=== PATIENT | female | born 1955 | race Caucasian/White ===

== ENCOUNTER → 2016-12-07 | Outpatient (CLI) | payer MEDICARE ==
[2016-12-04 08:49] LABS: PARTIAL THROMBOPLASTIN TIME 39.5 SEC (24.67-30.72)
[2016-12-04 09:12] LABS: PROTHROMBIN PROTIME 56.4 SEC (9.8-11.9)
[2016-12-04 09:14] LABS: INR 5.3
[2016-12-07 12:38] LABS: INR 3.1; PARTIAL THROMBOPLASTIN TIME 40.8 SEC (24.67-30.72); PROTHROMBIN PROTIME 33.5 SEC (9.8-11.9)
== END | disposition home or self-care (01) ==
LOC: LAB 11:41
PROVIDERS: ATTEND Otolaryngology
DX: I82.409 Acute embolism and thrombosis of unspecified deep veins of unspecified lower extremity (principal)
CPT/HCPCS: 36415; 85610; 85730

== ENCOUNTER 2017-02-11 22:20 | Inpatient (IN) | payer MEDICARE ==
[~2017-02-11] VITALS: Ht 154.9 cm; Wt 83.2 kg
[2017-02-11] MEDS ORDERED: NS IV STA (23:24)
[2017-02-11] MEDS ORDERED: MAXIPIME 1 GM in NS 100ML 100 ML IV STA (23:24)
[2017-02-11] MEDS ORDERED: TYLENOL PO STA (23:27)
[2017-02-11] MEDS ORDERED: MAXIPIME 2 GM in NS 100ML 100 ML IV STA (23:27)
--- NOTE | 2017-02-11 23:30 | ER.PDOC ---
General Chief Complaint: General Complaint Stated Complaint: WEAKNESS TRAVEL OUT OF US: No Time seen by MD: 23:29 Source: patient Exam Limitations: no limitations History of Present Illness Initial Comments Fever and weakness today. Taking chemo for Uterine Cancer. Severity: moderate Associated Symptoms: weakness Allergies: Coded Allergies: codeine (Verified Allergy, Unknown, Nausea, 02/11/17) Past Medical History Medical History: cancer Surgical History: hysterectomy LMP (females 10-50): hysterectomy Social History Smoking: cigarettes Alcohol Use: none Drug Use: none Review of Systems Constitutional: fever, weakness Respiratory: no symptoms reported Cardiovascular: no symptoms reported Gastrointestinal: no symptoms reported Musculoskeletal: no symptoms reported All Other Systems: Reviewed and Negative Physical Exam General Appearance: No Apparent Distress, WD/WN Neck: Non-Tender, Full Range of Motion, Supple, Normal Inspection Respiratory: chest non-tender, lungs clear, normal breath sounds, no respiratory distress CVS: reg rate & rhythm, no murmur, no gallop, pulses nml, nml capillary refill Gastrointestinal: Normal Bowel Sounds, No Organomegaly, No Pulsatile Mass, Non Tender Back: Normal Inspection, No CVA Tenderness Extremities: Normal Range of Motion, Non-Tender Neurologic/Psychiatric: international account representative II-XII NML as Tested Results/Orders Results/Orders Laboratory Tests Test 02/11/17 23:24 02/11/17 23:33 Blood Gas Sample Site Vbg Blood Gas pH 7.452 (7.350-7.450) Blood Gas PCO2 28.7 mmHg (35.0-45.0) Blood Gas PO2 40.7 mmHg (75.0-100.0) Blood Gas HCO3 19.6 mmol/L (22.0-26.0) Blood Gas Base Excess -3.8 mmol/L (-2.0-2.0) Sandro Test N/a Arterial Blood Oxygen Saturation 74.4 % (95-) Deoxyhemoglobin 24.7 % (0.2-0.6) Carboxyhemoglobin 2.8 % (0.5-1.5) Methemoglobin 0.8 % (0.2-0.6) Total Hemoglobin 7.9 % (13.5-17.5) Total Oxygen Concentration 8.0 % (13.5-17.5) Lactic Acid (Blood Gas) 1.0 MMOL/L (0.5-1.0) Blood Gas Temperature 37.0 FiO2 21 % (20-101) Bicarbonate 20.5 mmol/L (23-27) White Blood Count 4.8 10^3/uL (4.5-11.0) Red Blood Count 2.55 10^6/uL (4.00-5.20) Hemoglobin 6.9 g/dL (12.0-15.0) Hematocrit 22.5 % (36.0-46.0) Mean Corpuscular Volume 88.2 fL (78-100) Mean Corpuscular Hemoglobin 27.1 pg (26-34) Mean Corpuscular Hemoglobin Concent 30.7 g/dL (33-37) Red Cell Distribution Width 21.3 % (11.5-14.5) Platelet Count 336 10^3/uL (150-400) Mean Platelet Volume 9.0 fL (7.8-11.0) Neutrophils (%) (Auto) 61.3 % (41.0-85.0) Lymphocytes (%) (Auto) 26.4 % (24.0-44.0) Monocytes (%) (Auto) 11.5 % (5.0-12.0) Neutrophils # (Auto) 2.9 10^3/uL (1.8-7.7) Lymphocytes # (Auto) 1.3 10^3/uL (1.0-4.8) Monocytes # (Auto) 0.6 10^3/uL (0.3-0.8) Absolute Immature Granulocyte (auto 0 10^3 u/L (0-2) Eosinophils % 0.6 % (0.0-5.0) Basophils % 0.2 % (0.0-0.2) Basophils # 0.0 10^3/uL (0.0-0.1) Eosinophil Count 0.0 10^3/uL (0.0-0.2) Prothrombin Time 10.3 SEC (9.8-11.9) Prothromb Time International Ratio 1.0 Activated Partial Thromboplast Time 29.9 SEC (24.67-30.72) Sodium Level 140 mmol/L (132-145) Potassium Level 4.9 mmol/L (3.6-5.2) Chloride Level 106.0 mmol/L (96-109) Carbon Dioxide Level 21.8 mmol/L (20.0-32) Anion Gap 17.1 Blood Urea Nitrogen 44 mg/dL (7-18) Creatinine 1.97 mg/dL (0.59-1.40) Estimated GFR () 31.3 BUN/Creatinine Ratio 22.0 Glucose Level 106 mg/dL (70-110) Calculated Osmolality 300.7 Calcium Level 8.4 mg/dL (8.4-10.5) Total Bilirubin 0.4 mg/dL (0.2-1.0) Aspartate Amino Transf (AST/SGOT) 23 U/L (0-35) Alanine Aminotransferase (ALT/SGPT) 17 U/L (12-78) Alkaline Phosphatase 109 U/L (50-136) Total Protein 6.7 g/dL (6.4-8.2) Albumin 2.5 g/dL (3.4-5.0) Globulin 4.2 Percent Immature Gran (Cell Imm) 0.00 % (0.00-0.50) Progress Progress Spoke to Dr. Calles who said patient can be admitted here. EKG/XRAY/CT/US XRAY: chest (Nothing acute) Departure Time of Disposition: 00:40 Disposition: 09 ADMITTED INPATIENT Impression: Primary Impression: Anemia Qualified Codes: D64.9 - Anemia, unspecified Additional Impressions: Fever of unknown origin (FUO) Uterine cancer Condition: Stable Referrals: MISAEL PETE MD (PCP) PRIMARY CARE PROVIDER Comments Admitted to Dr. Hayden PENN,SHYAM Gil MD Feb 11, 2017 23:30
[2017-02-11 23:39] LABS: BASOPHIL % 0.2 % (0.0-0.2); EOSINOPHIL % 0.6 % (0.0-5.0); HEMATOCRIT 22.5 % (36.0-46.0); LYMPHOCYTES # 1.3 10^3/uL (1.0-4.8); LYMPHOCYTES % 26.4 % (24.0-44.0); MEAN CELL HGB 27.1 pg (26-34); MEAN CELL HGB CONCENTRATION 30.7 g/dL (33-37); MEAN CORP VOLUME 88.2 fL (78-100); MONOCYTES # 0.6 10^3/uL (0.3-0.8); MONOCYTES % 11.5 % (5.0-12.0); NEUTROPHIL # 2.9 10^3/uL (1.8-7.7); NEUTROPHILS % 61.3 % (41.0-85.0); RED CELL DISTRIBUTION WIDTH 21.3 % (11.5-14.5); WHITE BLOOD CELL 4.8 10^3/uL (4.5-11.0)
[2017-02-11 23:42] LABS: HEMOGLOBIN 6.9 g/dL (12.0-15.0)
[2017-02-11 23:42] LABS: ABG PCO2 28.7 mmHg (35.0-45.0); ABG PH 7.452 (7.350-7.450); BE(B) -3.8 mmol/L (-2.0-2.0); HCO3act 19.6 mmol/L (22.0-26.0); pO2 40.7 mmHg (75.0-100.0)
[2017-02-12] VITALS (9 sets, daily range): BP systolic 129–185; BP diastolic 60–86
[2017-02-12 00:06] LABS: CALCIUM 8.4 mg/dL (8.4-10.5); CARBON DIOXIDE 21.8 mmol/L (20.0-32)
--- NOTE | 2017-02-12 00:14 | DIREP ---
PROCEDURE:CHEST 1 VIEW COMPARISON:[facility], CT, CT ABD/PELVIS W/WO, 11/09/2016, 09:10 AM. INDICATIONS:Fever FINDINGS: LUNGS/PLEURA:No significant pulmonary parenchymal abnormalities. No effusions. VASCULATURE:Normal. Unremarkable pulmonary vasculature. CARDIAC:Normal. No cardiac silhouette abnormality or cardiomegaly. MEDIASTINUM:Normal. No visible mass or adenopathy. BONES:Degenerative changes of the thoracic spine and shoulders. OTHER:Right subclavian Port-A-Cath. CONCLUSION:No acute cardiopulmonary abnormalities. Dictated by: Norm Estrada M.D. on 02/12/2017 at 00:13 AM
--- NOTE | 2017-02-12 00:16 | NUR ---
DR MONA THAO MBA SPEAKING WITH DR DUNN
--- NOTE | 2017-02-12 00:25 | NUR ---
DR JACOBO THAO MBA SPEAKING WITH DR CENTENO , PATIENT TO BE ADMITTED TO MED SURG
[2017-02-12] MEDS ORDERED: MAXIPIME 1 GM in NS 100ML 100 ML IV STA (00:43)
--- NOTE | 2017-02-12 00:43 | PRM.ACF1 ---
Date and Time Date and Time Time: 00:42 Admission Criteria Forms ANEMIA Clinical Indications for Inpatient Care (Place 'X' for any and all applicable criteria) Ongoing inpatient care may be needed for anemia with 1 or more of the following (1)(2)(3)(4)(18)(37): []I. Severe signs or symptoms unresponsive to transfusion or volume replacement , including ANY ONE of the following: []a) Heart failure []b) Chest pain []c) Myocardial ischemia []d) Exertional dyspnea []e) Syncope []f) Acute peripheral ischemia (eg, pulseless, cool, mottled, or cyanotic extremity) [x]g) Other severe signs or symptoms []II. Cognitive impairment []III. Active hemorrhage []IV.Active hemolysis with rapidly progressive anemia []V. Hemodynamic instability Extended stay beyond goal length of stay for the primary condition may be needed until ALL of the following are present (1)(2)(3)(4): []a) Hemodynamic stability []b) Any active blood loss controlled []c) Severe signs or symptoms resolved []d) Mental status normal or at baseline []e) Stable hemoglobin after transfusion []f) Any underlying disorder or complications of treatment controlled The original [employer] content created by [employer] has been revised. The portions of the content which have been revised are identified through the use of italic text or in bold, and [email or web address] has neither reviewed nor approved the modified material. All other unmodified content is copyright [employer]. Please see references footnoted in the original [employer] edition 2016 SHYAM PENN MD Feb 12, 2017 00:43
[2017-02-12] MEDS ORDERED: LASIX IV STA (00:48)
[2017-02-12] MEDS ORDERED: NS 1000ML 1,000 ML ONE (00:58)
[2017-02-12] MEDS ORDERED: TYLENOL PO ONE (00:58)
[2017-02-12] MEDS ORDERED: NS IV SCH (01:00)
[2017-02-12] MEDS ORDERED: RANI150C PO (01:32)
[2017-02-12] MEDS ORDERED: OXYC5TAB PO (01:32)
[2017-02-12] MEDS ORDERED: IBUP400T PO (01:32)
[2017-02-12] MEDS ORDERED: PROC10TA PO ×2 (01:32)
[2017-02-12] MEDS ORDERED: [UNRECOGNIZED DRUG - CODE] PO (01:32)
[2017-02-12] MEDS ORDERED: GABA300C10 PO (01:32)
[2017-02-12] MEDS ORDERED: POTA20TA14 PO (01:32)
[2017-02-12] MEDS ORDERED: LUBI24CA5 PO (01:32)
[2017-02-12] MEDS ORDERED: MAGN400T27 PO (01:32)
[2017-02-12] MEDS ORDERED: ENOX40DI SQ (01:33)
[2017-02-12 02:08] LABS: BILIRUBIN,URINE NEGATIVE (NEGATIVE); UROBILINOGEN,URINE NORMAL (NEGATIVE)
[2017-02-12 02:09] LABS: APPEARANCE,URINE CLOUDY (CLEAR); UA COLOR RED (YELLOW); WBC,URINE TNTC WBC/HPF (0-2)
[2017-02-12] MEDS ORDERED: NS 500ML 500 ML IV ONE (03:05)
[2017-02-12] MEDS ORDERED: LASIX ONE (03:07)
[2017-02-12] MEDS ORDERED: TYLENOL ONE ×3 (06:18→16:03)
[2017-02-12] MEDS ORDERED: TYLENOL PO PRN (06:30)
--- NOTE | 2017-02-12 07:30 | NUR ---
ASSESSMENT COMPLETED. PATIENT AWAKE AND ALERT. FIRST BLOOD TRANSFUSION JUST COMPLETING. LINE BEING FLUSHED WITH NS. PATIENT WITH ACCESSED PORT TO RIGHT CHEST. PATIENT UP WITH STANDBY ASSIST TO BATHROOM. VOIDED WITHOUT PROBLEMS. DENIES PAIN OR DISCOMFORT AT PRESENT. RESPIRATIONS UNLABORED. EDEMA NOTED TO LOWER EXTREMITIES WITH MORE EDEMA IN RIGHT LOWER LEG. PATIENT REPORTS LEG IS PAINFUL AT TIMES. SR UP X2. CALL LIGHT WITHIN REACH.
[2017-02-12] MEDS ORDERED: MAXIPIME 1 GM in NS 100ML 100 ML IV SCH (09:00)
--- NOTE | 2017-02-12 09:52 | NUR ---
SECOND UNIT OF BLOOD BEGAN. PATIENT RESTING IN BED WITH HOB UP 90 DEGREES. EYES CLOSED. RESPIRATIONS EASY AND UNLABORED. PATIENT EASILY AWAKENS TO VERBAL STIMULI. DENIES PAIN OR DISCOMFORT. VITAL SIGNS OBTAINED PRIOR TO STARTING UNIT OF BLOOD. NURSE AT BEDSIDE. SR UP X2.
--- NOTE | 2017-02-12 11:12 | NUR ---
PATIENT CONTINUES TO RECEIVE BLOOD TRANSFUSION. DENIES S/S ADVERSE REACTION. PATIENT CONTINUES TO REST WITH EYES CLOSED. NO DISTRESS NOTED. SR UP X2. CALL LIGHT WITHIN REACH.
--- NOTE | 2017-02-12 12:13 | NUR ---
PATIENT C/O PAIN IN RIGHT HIP AND LEG. BLOOD CONTINUING TO INFUSE. NEAR COMPLETION. PRN PAIN MED IS TYLENOL. PATIENT STATES SHE TAKES OXYCODONE AND GABAPENTIN FOR PAIN AT HOME. STATES "TYLENOL IS NOT KICKING IT."
[2017-02-12] MEDS ORDERED: OXYCODONE HCL ONE (12:42)
[2017-02-12] MEDS ORDERED: OXYCODONE HCL PO ONE ×2 (12:45→12:49)
--- NOTE | 2017-02-12 13:00 | NUR ---
DISCHARGE PLAN CM VISITED WITH PATIENT CONCERNING HER DISCHARGE PLAN AND NEED. PATIENT STATED SHE LIVES @ HOME WITH HER AND SHE IS HOWE INDEPENDENT ON ADLS. SHE STATED SHE HAS ALL DME IN PLACE INCLUDING, A WALKER, CANE AND SHOWER CHAIR. PATIENT DENIES FURTHER DME NEEDS @ THIS TIME. PATIENT IS CURRENTLY UNDERGOING CHEMO TREATMENTS FOR HER UTERINE CA DIAGNOSIS THROUGH [facility] IN [place], [place] AND STATED SHE IS GOING TO BE STARTING RADIATION TREATMENTS SOON. PATIENT DENIES FURTHER NEEDS @ THIS TIME. CONTACT INFORMATION PROVIDED. CURRENT GOAL FOR PATIENT IS TO RETURN BACK HOME WITH TO ROUTINE CARE UPON DISCHARGE. CM AND NURSING TO CONTINUE TO FOLLOW PATIENTS PLAN OF CARE AND FOR FURTHER DISCHARGE NEEDS.
--- NOTE | 2017-02-12 13:06 | NUR ---
BLOOD TRANSFUSION COMPLETED. PATIENT C/O FEELING COLD. COVERED WITH MULTIPLE BLANKETS. VS STABLE. ADMINISTERED OXYCODONE 5MG IR PO FOR PAIN. UP TO BATHROOM. URINE CLOUDY AND REDDISH BROWN. SR UP X2. CALL LIGHT WITHIN REACH.
[2017-02-12] MEDS: MAXIPIME 1 GM in NS 100ML 100 ML IV SCH (14:00)
--- NOTE | 2017-02-12 14:08 | PCM.HP ---
History of Present Illness Reason for Visit: WEAKNESS AND FEVER History of Present Illness 61-YEAR-OLD LADY, CURRENTLY ON CHEMOTHERAPY FOR UTERINE CANCER THAT IS METASTATIC REQUIRING HIP SURGERY SHE IS CURRENTLY UNDER CARE OF DR. DUNN IN [place] FOR MANAGEMENT. 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 NO COUGH, FEVER CONTROLLED. RECEIVING IV FLUIDS FOR MANAGEMENT. SHE IS ON NEUTROPENIC PRECAUTIONS Past Medical History Cardiac: HTN Renal/: Other ( UTERINNE CANCER METASTATIC) Past Surgical History: Other (RECENT HIP SURGERY) Past Social History Smoke: No Alcohol: none Lives: with Family Travel Hx EBOLA RISK:Travel to/contact w: No Is pt experiencing any Ebola s: No Review of Systems Constitutional: Chills, Weakness, Malaise, Other ( FEVER) Eyes: No: Pain, Vision change, Conjunctivae inflammation, Eyelid inflammation, Other, Redness ENT: No: Ear pain, Ear discharge, Nose pain, Nose discharge, Nose congestion, Mouth pain, Mouth swelling, Throat pain, Throat swelling, Other Respiratory: No: Cough, Dry, Shortness of breath, SOB with excertion, Wheezing , Hemoptysis, Pleuritic Pain, Sputum, Wheezing, Other Cardiovascular: No: Chest Pain, Palpitations, Orthopnea, Paroxysmal Noc. Dyspnea, Edema, Lt Headedness, Other Gastrointestinal: No: Nausea, Vomiting, Abdominal Pain, Diarrhea, Constipation , Melena, Hematochezia, Other Musculoskeletal: back pain, leg pain ( HIP PAIN MAINLY ON THE RIGHT SIDE) Skin: No: Rash, Lesions, Jaundice, Bruising, Other Allergies: Coded Allergies: codeine (Verified Allergy, Unknown, Nausea, 02/11/17) Scheduled Enoxaparin Sodium (Lovenox), 120 MG SQ DAILY, (Reported) Gabapentin (Gabapentin), 1 CAP PO TID, (Reported) Magnesium Oxide (Mag-Oxide), 1 TAB PO BID, (Reported) Potassium Chloride (Potassium Chloride), 1 TAB PO DAILY, (Reported) Scheduled PRN Docusate Sodium (Docusate Sodium), 1 CAP PO DAILY PRN for CONSTIPATION, ( Reported) Ibuprofen (Ibuprofen), 1 TAB PO Q4 PRN for FEVER, (Reported) Lubiprostone (Amitiza), 1 CAP PO BID PRN for CONSTIPATION, (Reported) Oxycodone Hcl (Oxycodone Hcl), 1 TAB PO Q4 PRN for PAIN, (Reported) Prochlorperazine Maleate (Prochlorperazine Maleate), 1 TAB PO Q6 PRN for nervousness, (Reported) Prochlorperazine Maleate (Compazine), 10 MG PO TID PRN for nausea , (Reported) Ranitidine Hcl (Ranitidine Hcl), 1 CAP PO BID PRN for INDIGESTION, (Reported) VTE VTE Risk Total Score: >5 VTE Risk Score VTE Risk: Score 0-1 = Low Risk (Aggressive mobilization; early ambulation; no VTE prophylaxis required) Score 2: Moderate Risk (Intermittent/Pneumatic Compression Device OR Lovenox/Heparin/Coumadin) Score 3-4: High Risk (Intermittent/Pneumatic Compression Device AND Lovenox/Heparin/Coumadin) Score > or =5: Highest Risk (Intermittent/Pneumatic Compression Device AND Lovenox/Heparin/Coumadin) Mechanical device ordered: Yes VTE VTE Present on Admission: Yes Currently receiving anticoagul: Yes VTE Risk Total Score: >5 Exam Vital Signs Vital Signs Date Time Temp Pulse Resp B/P (MAP) Pulse Ox O2 Delivery O2 Flow Rate FiO2 02/12/17 12:50 97.7 86 16 185/77 02/12/17 10:02 Nasal Cannula 2.00 02/12/17 07:30 100 General Appearance: Alert, Oriented X3, Cooperative HEENT: Atraumatic, PERRLA, EOMI Respiratory: Clear to auscultation, Normal air movement Cardiovascular: Regular rate, Normal S1 Abdominal: Normal bowel sounds Extremities: No clubbing Skin: No breakdown Neuro: Normal speech Assessment/Plan Assessment/Plan Assessment/Plan - ACUTE ANEMIA LIKELY SECONDARY TO CHEMOTHERAPY - NEUTROPENIA SECONDARY TO CHEMOTHERAPY - ACUTE RENAL FAILURE, LIKELY PRERENAL REQUIRING IV FLUID - METASTATIC UTERINE CANCER CARCINOMA ONCHEMOTHERAPY PLAN OF CARE WILL FOLLOW INSTRUCTIONS OF HER TREATING ONCOLOGY 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 NEUTROPENIC PRECAUTIONS. IV FLUIDS, BLOOD TRANSFUSION. PAIN CONTROL Problems: Patient History: Cerebrovascular disorder 33 FATHER Congestive heart failure 33 FATHER Diabetes mellitus 33 FATHER MONICA CENTENO MD Feb 12, 2017 14:08
[2017-02-12] MEDS ORDERED: AMBIEN PO PRN (14:30)
[2017-02-12] MEDS ORDERED: MORPHINE SULFATE IV PRN (14:30)
--- NOTE | 2017-02-12 15:50 | PRM.ACF1 ---
Admission Criteria Forms ANEMIA, IRON DEFICIENCY OR UNSPECIFIED Clinical Indications for Inpatient Care (Place 'X' for any and all applicable criteria): Admission is indicated for ANY ONE of the following(1)(2)(3)(4)(5)(6)(7): [X] I. Inpatient admission required rather than observation care (Also use Anemia, Iron Deficiency or Unspecified: Observation Care guideline as appropriate) because of ANY ONE of the following: [] a) Hemodynamic instability that is severe or persistent [] b) Active bleeding that cannot be rapidly controlled [] c) CVS symptoms (i.e., dyspnea, chest pain, heart failure) that are severe or persistent [] d) Neurologic symptoms (i.e., cognitive impairment, recurrent syncope or near syncope) that are severe or persistent [] e) Cardiac arrhythmias of immediate concern [] f) Acute peripheral ischemia (e.g., pulseless, cool, mottled, or cyanotic extremity) [] g) High-risk low platelet count [X] h) Acute renal failure [] i) Ongoing transfusion for blood loss (greater than 2 units) [] j) IV fluid to replace significant ongoing (eg, >24 hours) losses (> 3 L/m2 per day) [] k) Pulmonary artery catheter monitoring [] l) Supplemental oxygen or respiratory treatments for over 24 hours that are performable only in acute inpatient setting [] m) Immediate inpatient surgery [] n) Other condition, treatment or monitoring requiring inpatient admission [] II Active massive hemorrhage [] III. Active hemolysis with rapidly progressive anemia [A](6) Extended stay beyond goal length of stay may be needed for (17)(18) []a) Diagnosed cause of anemia requiring longer hospitalization (eg, active GI bleeding, immune hemolysis requiring electrophoresis, complications of malignancy requiring acute care []b) Continued emergent anemia indicators (23) []c) Transfusion reactions []d) Associated leukopenia or thrombocytopenia needing inpatient care []e) Active comorbidities (eg, renal failure, heart failure) The original [facility] content created by [facility] has been revised. The portions of the content which have been revised are identified through the use of italic text or in bold. [facility] has neither reviewed nor approved the modified material. All other unmodified content is copyright [facility]. Please see references footnoted in the original [facility] edition 2016 Is [facility] added/comple: YES RUTH CARRION Feb 12, 2017 15:50
[2017-02-12] MEDS ORDERED: PEPCID PO PRN (16:00)
[2017-02-12] MEDS ORDERED: COLACE PO PRN (16:00)
[2017-02-12] MEDS ORDERED: AMITIZA PO PRN (16:00)
[2017-02-12] MEDS ORDERED: COMPAZINE PO PRN ×2 (16:00)
[2017-02-12] MEDS ORDERED: MOTRIN ONE ×2 (16:10→20:22)
[2017-02-12] MEDS: NS 1000ML 1,000 ML IV SCH ×2 (16:10→22:44)
[2017-02-12] MEDS ORDERED: MOTRIN PO ONE (16:12)
[2017-02-12] MEDS: MOTRIN PO PRN ×2 (16:14→20:29)
--- NOTE | 2017-02-12 16:15 | NUR ---
PATIENT REPORTS FEELING LIKE SHE HAS FEVER. TEMPERATURE TAKEN AND PATIENT WITH 102.2. MEDICATED WITH IBUPROFEN 400MG PO. BLANKETS REMOVED AND HEAT TURNED DOWN. PATIENT C/O "JUST FEELING NOT GREAT". AT BEDSIDE.
[2017-02-12] MEDS ORDERED: LOVENOX SQ ONE (16:21)
[2017-02-12] MEDS ORDERED: KLOR-CON 10 PO ONE (16:22)
[2017-02-12] MEDS ORDERED: NEURONTIN ONE ×2 (16:22→16:23)
[2017-02-12] MEDS: NEURONTIN PO SCH ×2 (16:25→20:27)
[2017-02-12] MEDS: KLOR-CON 10 PO SCH (16:25)
--- NOTE | 2017-02-12 17:30 | NUR ---
TEMP RETAKEN. REMAINS ELEVATED AT 102.4. PATIENT ATTEMPTING TO EAT SUPPER. STATES "NOTHING SOUNDS GOOD." PATIENT LYING IN BED WITH JUST SHEET IN PLACE. CALL LIGHT WITHIN REACH. AT BEDSIDE.
--- NOTE | 2017-02-12 18:29 | NUR ---
URINE SPECIMEN OBTAINED.
--- NOTE | 2017-02-12 19:25 | NUR ---
REPORT GIVEN TO DANUTA WATERS.
[2017-02-12 20:27] LABS: BILIRUBIN,URINE NEGATIVE (NEGATIVE); UROBILINOGEN,URINE NORMAL (NEGATIVE)
[2017-02-12] MEDS: MAG-OX PO SCH (20:27)
[2017-02-12] MEDS: PEPCID PO SCH (20:27)
[2017-02-12] MEDS: OXY-IR PO PRN (20:28)
--- NOTE | 2017-02-12 20:28 | NUR ---
oxycodone 5mg po given for pain
--- NOTE | 2017-02-12 20:39 | NUR ---
motrin 400mg p given for temp
[2017-02-12 20:53] LABS: APPEARANCE,URINE SLIGHTLY HAZY (CLEAR); UA COLOR YELLOW (YELLOW)
[2017-02-12 21:06] LABS: YEAST,URINE FEW
[2017-02-13] VITALS: BP 154/86
[2017-02-13] MEDS: MAXIPIME 1 GM in NS 100ML 100 ML IV SCH (01:11)
[2017-02-13] MEDS: OXY-IR PO PRN ×2 (03:50→11:44)
[2017-02-13 04:00] VITALS: BP 173/67
[2017-02-13 06:00] LABS: BASOPHIL % 0.2 % (0.0-0.2); EOSINOPHIL # 0.1 10^3/uL (0.0-0.2); EOSINOPHIL % 2.3 % (0.0-5.0); HEMATOCRIT 28.4 % (36.0-46.0); HEMOGLOBIN 8.9 g/dL (12.0-15.0); LYMPHOCYTES % 17.9 % (24.0-44.0); MEAN CELL HGB 27.6 pg (26-34); MEAN CELL HGB CONCENTRATION 31.3 g/dL (33-37); MEAN CORP VOLUME 87.9 fL (78-100); MEAN PLATELET VOLUME 9.1 fL (7.8-11.0); MONOCYTES # 0.5 10^3/uL (0.3-0.8); NEUTROPHIL # 3.7 10^3/uL (1.8-7.7); NEUTROPHILS % 69.4 % (41.0-85.0); RED CELL DISTRIBUTION WIDTH 19.6 % (11.5-14.5); WHITE BLOOD CELL 5.3 10^3/uL (4.5-11.0)
[2017-02-13] MEDS ORDERED: LOVENOX SQ SCH (09:00)
[2017-02-13] MEDS: PEPCID PO SCH (09:13)
[2017-02-13] MEDS: KLOR-CON 10 PO SCH (09:14)
[2017-02-13] MEDS: NEURONTIN PO SCH (09:14)
[2017-02-13] MEDS: MAG-OX PO SCH (09:14)
[2017-02-13 09:27] VITALS: BP 178/85
[2017-02-13] MEDS ORDERED: NS 250ML 250 ML IV ONE (09:53)
[2017-02-13 10:02] VITALS: BP 172/87
[2017-02-13 10:23] VITALS: BP 174/86
--- NOTE | 2017-02-13 10:25 | NUR ---
1 UNIT BLOOD HAS BEEN STARTED NO REACTIONS NOTED AT THIS TIME.
[2017-02-13] MEDS: NS 1000ML 1,000 ML IV SCH (10:30)
[2017-02-13] MEDS ORDERED: CEPH-350 PO (11:20)
--- NOTE | 2017-02-13 11:35 | PRM.DC ---
Discharge Summary Date of Arrival on Unit: Feb 12, 2017 Reason for Visit: WEAKNESS AND FEVER Additional Comments 61 yo lady with metastatic uterine cancer, receiving therapy with chemo, presented to ED with weakness and fever, Onc-Vulcanizing Press Operator was contacted and advised admission for septic work up and Blood Tx, pt received 3 units of PRBCs, stareted on Cefepime, BC were negatiive, UTI noted, pt felt better, Cr was elevated. labs reviewed. Hb 8.9, Cr 2.3 pt desired DC to minimize nosocomial infection has appt with Dr Foster in Wednesday Patient History: Cerebrovascular disorder 33 FATHER Congestive heart failure 33 FATHER Diabetes mellitus 33 FATHER History Present Illness: General: Alert, Oriented X3, Cooperative, Other (alopacia) HEENT: Atraumatic Neck: Supple, No JVD, No thyromegaly Lungs: Clear to auscultation Heart: Regular rate, Normal S1 Abdomen: Normal bowel sounds, Soft Extremities: No clubbing, No cyanosis Scheduled Cephalexin (Keflex), 1 CAP PO BID, (Reported) Enoxaparin Sodium (Lovenox), 120 MG SQ DAILY, (Reported) Gabapentin (Gabapentin), 1 CAP PO TID, (Reported) Magnesium Oxide (Mag-Oxide), 1 TAB PO BID, (Reported) Potassium Chloride (Potassium Chloride), 1 TAB PO DAILY, (Reported) Scheduled PRN Docusate Sodium (Docusate Sodium), 1 CAP PO DAILY PRN for CONSTIPATION, ( Reported) Ibuprofen (Ibuprofen), 1 TAB PO Q4 PRN for FEVER, (Reported) Lubiprostone (Amitiza), 1 CAP PO BID PRN for CONSTIPATION, (Reported) Oxycodone Hcl (Oxycodone Hcl), 1 TAB PO Q4 PRN for PAIN, (Reported) Prochlorperazine Maleate (Prochlorperazine Maleate), 1 TAB PO Q6 PRN for nervousness, (Reported) Prochlorperazine Maleate (Compazine), 10 MG PO TID PRN for nausea , (Reported) Ranitidine Hcl (Ranitidine Hcl), 1 CAP PO BID PRN for INDIGESTION, (Reported) Course Blood Pressure Systolic: 174 Blood Pressure Diastolic: 86 Blood Pressure Mean: 116 Plan Assessment - UTI - Acute anemia, s/p Transfusion -immunocompromised status due to Chemo, Septic work up is negative -Uterine CA, on chemotherapy -CKD stage 3 Discharge Date: Feb 13, 2017 Discharge Disposition: Stable Plan - 7 days of Keflex - f/u with photogrammetric surveyor Wednesday -return instruction given MONICA CENTENO MD Feb 13, 2017 11:35
[2017-02-13] MEDS ORDERED: LASIX IV STA (12:44)
--- NOTE | 2017-02-13 13:08 | NUR ---
INFUSION OF BLOOD COMPLETED. NO SIGNS OF COMPLICATIONS OR ADVERSE REACTIONS NOTED. 40MG IV LASIX ADMINISTERED
[2017-02-13 14:40] VITALS: BP 174/86
--- NOTE | 2017-02-13 14:40 | NUR ---
PT HAS BEEN DISCHARGED OFF OF FLOOR AT THIS TIME VIA WHEELCHAIR. PT UNDERSTANDS TO FOLLOW UP WITH ONCOLOGIST AND TO PROGRESS ACTIVITY AT [facility]. PT UNDERSTANDS NEW ORDER FOR KEFLEX. PT DENIES ANY FURTHER QUESTIONS OR CONCERNS AT THIS TIME. PT LEAVES FLOOR VIA WHEEL CHAIR TO PRIVATE VEHICLE ACCOMPANIED BY SPOUSE.
[2017-02-14] MEDS ORDERED: LASIX IV SCH (09:00)
== END 2017-02-13 14:35 | disposition home or self-care (01) | DRG 809 ==
LOC: ER 22:20 → MS 02-12 00:59
PROVIDERS: ADMIT Internal Medicine; ATTEND Internal Medicine
PROC: 30233N1 Transfusion of Nonautologous Red Blood Cells into Peripheral Vein, Percutaneous Approach (ICD-10-PCS; principal; 2017-02-12)
DX: D70.1 Agranulocytosis secondary to cancer chemotherapy (principal); N17.9 Acute kidney failure, unspecified; N39.0 Urinary tract infection, site not specified; D64.81 Anemia due to antineoplastic chemotherapy; C55 Malignant neoplasm of uterus, part unspecified; E86.0 Dehydration; I12.9 Hypertensive chronic kidney disease with stage 1 through stage 4 chronic kidney disease, or unspecified chronic kidney disease; N18.3 Chronic kidney disease, stage 3 (moderate); T45.1X5A Adverse effect of antineoplastic and immunosuppressive drugs, initial encounter; Z90.710 Acquired absence of both cervix and uterus; Z88.6 Allergy status to analgesic agent; Z79.899 Other long term (current) drug therapy; Z82.3 Family history of stroke; Z83.3 Family history of diabetes mellitus; Z82.49 Family history of ischemic heart disease and other diseases of the circulatory system
CPT/HCPCS: 36415; 36430; 71010; 80048; 80053; 81000; 82803; 83880; 84443; 85025; 85610; 85730; 86885; 86900; 86901; 86921; 87040; 87086; 96374; 99285; J1650; J1940; J3480; J3490; J7030; J7040; J7050; J0692; P9016